=== PATIENT | female | born 1950 | race Asian ===

== ENCOUNTER 2018-12-03 09:37 | Outpatient (CLI) | payer MEDICARE, BC ==
--- NOTE | 2018-12-03 11:15 | MMO ---
Bilateral MAMMO Bilat Screen DDI+ASIF. CLINICAL HISTORY: Patient is 68 years old and is seen for screening. The patient has no family history of breast cancer. The patient has no personal history of cancer. The patient has a history of left needle biopsy in 2004 - benign. VIEWS: The views performed were: bilateral craniocaudal with tomosynthesis and bilateral mediolateral oblique with tomosynthesis. FILMS COMPARED: The present examination has been compared to a prior imaging study performed at [facility] on 07/04/2016. MAMMOGRAM FINDINGS: There are scattered fibroglandular densities. Finding 1: There are stable benign appearing calcifications seen in both breasts. Finding 2: There is a biopsy clip seen in the left breast. There are no suspicious masses, suspicious calcifications, or new areas of architectural distortion. IMPRESSION: THERE IS NO MAMMOGRAPHIC EVIDENCE OF MALIGNANCY. A ROUTINE FOLLOW-UP MAMMOGRAM IN 1 YEAR IS RECOMMENDED. THE RESULTS OF THIS EXAM WERE SENT TO THE PATIENT. ACR BI-RADS Category 2 - Benign finding MAMMOGRAPHY NOTE: 1. A negative mammogram report should not delay a biopsy if a dominant of clinically suspicious mass is present. 2. Approximately 10% to 15% of breast cancers are not detected by mammography. 3. Adenosis and dense breasts may obscure an underlying neoplasm.
== END 2018-12-03 09:38 | disposition home or self-care (01) ==
LOC: BICMAMMO 09:37
PROVIDERS: ATTEND Family Medicine
DX: Z12.31 Encounter for screening mammogram for malignant neoplasm of breast (principal)
CPT/HCPCS: 77063; 77067

== ENCOUNTER 2018-12-10 14:08 | Outpatient (CLI) | payer MEDICARE, BC ==
--- NOTE | 2018-12-10 14:40 | BD ---
DEXA BONE DENSITY EXAM: HISTORY: A 68-year-old postmenopausal female for screening. COMPARISON: 03/24/2008. FINDINGS: Lumbar Spine: BMD (g/cm2) L1 0.749 T-Score: -2.2 L2 0.777 T-Score: -2.3 L3 0.804 T-Score: -2.5 L4 0.929 T-Score: -1.2 L1-L4 0.829 T-Score: -2.0 Femoral Neck: 0.509 T-Score: -3.1 Total Femur: 0.720 T-Score: -1.8 Impression: Osteoporosis. This patient has approximately an 8 times increased risk for fracture when compared wi th young patients with normal bone mineral density. POS: ARMANDO
== END 2018-12-10 14:09 | disposition home or self-care (01) ==
LOC: BICMAMMO 14:08
PROVIDERS: ATTEND Family Medicine
DX: Z13.820 Encounter for screening for osteoporosis (principal); Z78.0 Asymptomatic menopausal state; M81.0 Age-related osteoporosis without current pathological fracture
CPT/HCPCS: 77080

== ENCOUNTER 2019-01-14 11:27 | Outpatient (CLI) | payer MEDICARE, BC ==
--- NOTE | 2019-01-14 12:12 | RAD ---
Exam: 2 views of the thoracic spine HISTORY: Thoracic spine pain COMPARISON: None FINDINGS: 2 views of the thoracic spine shows normal height and alignment of the vertebral bodies and intervertebral discs without fracture or subluxation. Mild degenerative changes are seen. IMPRESSION: Mild degenerative changes without acute osseous abnormality..
== END 2019-01-14 11:28 | disposition home or self-care (01) ==
LOC: BICRAD 11:27
PROVIDERS: ATTEND Internal Medicine Rheumatology
DX: M53.84 Other specified dorsopathies, thoracic region (principal); M47.814 Spondylosis without myelopathy or radiculopathy, thoracic region
CPT/HCPCS: 72070

== ENCOUNTER 2019-06-24 11:57 | Outpatient (CLI) | payer MEDICARE, BC ==
--- NOTE | 2019-06-24 13:59 | RAD ---
2 VIEW CHEST: Date: 06/24/19 HISTORY: Dyspnea. COMPARISON: Portable exam of 09/19/16. FINDINGS: The lungs appear clear and unchanged in position. Heart size within normal range and stable. Vascular markings within normal range. Osseous structures unremarkable. IMPRESSION: Unremarkable chest. No acute interval change. POS: [facility]
== END 2019-06-24 11:58 | disposition home or self-care (01) ==
LOC: RAD 11:57
PROVIDERS: ATTEND Internal Medicine Critical Care Medicine
DX: R06.00 Dyspnea, unspecified (principal)
CPT/HCPCS: 71046

== ENCOUNTER 2020-01-07 09:50 | Outpatient (CLI) | payer MEDICARE, BC ==
--- NOTE | 2020-01-07 10:53 | MMO ---
Bilateral MAMMO Bilat Screen DDI+ASIF. CLINICAL HISTORY: Patient is 69 years old and is seen for screening. The patient has no family history of breast cancer. The patient has no personal history of cancer. The patient has a history of left needle biopsy in 2004 - benign. VIEWS: The views performed were: bilateral craniocaudal with tomosynthesis and bilateral mediolateral oblique with tomosynthesis. FILMS COMPARED: The present examination has been compared to prior imaging studies performed at [facility] on 07/04/2016 and 12/03/2018. This study has been interpreted with the assistance of computer-aided detection. MAMMOGRAM FINDINGS: There are scattered fibroglandular densities. Benign calcifications are noted bilaterally. Left biopsy clip. There are no suspicious masses, suspicious calcifications, or new areas of architectural distortion. IMPRESSION: THERE IS NO MAMMOGRAPHIC EVIDENCE OF MALIGNANCY. A ROUTINE FOLLOW-UP MAMMOGRAM IN 1 YEAR IS RECOMMENDED. THE RESULTS OF THIS EXAM WERE SENT TO THE PATIENT. ACR BI-RADS Category 2 - Benign finding MAMMOGRAPHY NOTE: 1. A negative mammogram report should not delay a biopsy if a dominant of clinically suspicious mass is present. 2. Approximately 10% to 15% of breast cancers are not detected by mammography. 3. Adenosis and dense breasts may obscure an underlying neoplasm. Reported by: DORENE ALVAREZ MD Electonically Signed: [id number]
== END 2020-01-07 09:51 | disposition home or self-care (01) ==
LOC: BICMAMMO 09:50
PROVIDERS: ATTEND Family Medicine
DX: Z12.31 Encounter for screening mammogram for malignant neoplasm of breast (principal); Z91.89 Other specified personal risk factors, not elsewhere classified
CPT/HCPCS: 77063; 77067

== ENCOUNTER 2020-12-08 13:56 | Outpatient (CLI) | payer MEDICARE, BC | END 2020-12-08 13:57 | disposition home or self-care (01) | LOC: BICMAMMO 13:56 | PROVIDERS: ATTEND Internal Medicine Rheumatology | DX: M81.0 Age-related osteoporosis without current pathological fracture (principal) | CPT/HCPCS: 77080 ==

== ENCOUNTER 2021-01-24 11:43 | Outpatient (CLI) | payer MEDICARE, BC | END 2021-01-24 11:44 | disposition home or self-care (01) | LOC: BICMAMMO 11:43 | PROVIDERS: ATTEND Family Medicine | DX: Z12.31 Encounter for screening mammogram for malignant neoplasm of breast (principal); Z91.89 Other specified personal risk factors, not elsewhere classified | CPT/HCPCS: 77063; 77067 ==

== ENCOUNTER 2021-07-04 10:23 | Outpatient (CLI) | payer MEDICARE, BC | END 2021-07-04 10:24 | disposition home or self-care (01) | LOC: RAD 10:23 | PROVIDERS: ATTEND Internal Medicine Critical Care Medicine | DX: R06.00 Dyspnea, unspecified (principal) | CPT/HCPCS: 71046 ==

== ENCOUNTER 2022-01-25 13:13 | Outpatient (CLI) | payer MEDICARE, BC | END 2022-01-25 13:14 | disposition home or self-care (01) | LOC: BICMAMMO 13:13 | PROVIDERS: ATTEND Family Medicine | DX: Z12.31 Encounter for screening mammogram for malignant neoplasm of breast (principal); Z91.89 Other specified personal risk factors, not elsewhere classified | CPT/HCPCS: 77063; 77067 ==

== ENCOUNTER 2022-03-27 12:52 | Outpatient (CLI) | payer MEDICARE, BC | END 2022-03-27 12:53 | disposition home or self-care (01) | LOC: BICRAD 12:52 | PROVIDERS: ATTEND Internal Medicine Rheumatology | DX: M77.42 Metatarsalgia, left foot (principal) ==

== ENCOUNTER 2022-07-05 09:31 | Outpatient (CLI) | payer MEDICARE, BC | END 2022-07-05 09:32 | disposition home or self-care (01) | LOC: RAD 09:31 | PROVIDERS: ATTEND Internal Medicine Critical Care Medicine | DX: R06.00 Dyspnea, unspecified (principal) | CPT/HCPCS: 71046 ==

== ENCOUNTER 2022-10-30 13:37 | Outpatient (CLI) | payer MEDICARE, BC | END 2022-10-30 13:38 | disposition home or self-care (01) | LOC: BICRAD 13:37 | PROVIDERS: ATTEND Internal Medicine Rheumatology | DX: M54.2 Cervicalgia (principal); M47.812 Spondylosis without myelopathy or radiculopathy, cervical region | CPT/HCPCS: 72052 ==

== ENCOUNTER 2022-11-27 12:26 | Outpatient (CLI) | payer MEDICARE, BC | END 2022-11-27 12:27 | disposition home or self-care (01) | LOC: BICRAD 12:26 | PROVIDERS: ATTEND Family Medicine | DX: M25.531 Pain in right wrist (principal) ==

== ENCOUNTER 2023-01-04 13:09 | Outpatient (CLI) | payer MEDICARE, BC | END 2023-01-04 13:10 | disposition home or self-care (01) | LOC: TBSIIMAG 13:09 | PROVIDERS: ATTEND Specialist | DX: M54.12 Radiculopathy, cervical region (principal); M47.812 Spondylosis without myelopathy or radiculopathy, cervical region; E07.9 Disorder of thyroid, unspecified | CPT/HCPCS: 72141 ==

== ENCOUNTER 2023-07-16 09:44 | Outpatient (CLI) | payer MEDICARE, BC | END 2023-07-16 09:45 | disposition home or self-care (01) | LOC: RAD 09:44 | PROVIDERS: ATTEND Internal Medicine Critical Care Medicine | DX: R06.00 Dyspnea, unspecified (principal); J98.4 Other disorders of lung; M47.814 Spondylosis without myelopathy or radiculopathy, thoracic region | CPT/HCPCS: 71046 ==

== ENCOUNTER 2024-02-06 09:50 | Outpatient (CLI) | payer MEDICARE, BC | END 2024-02-06 09:51 | disposition home or self-care (01) | LOC: BICRAD 09:50 | PROVIDERS: ATTEND Family Medicine | DX: R09.89 Other specified symptoms and signs involving the circulatory and respiratory systems (principal); R91.8 Other nonspecific abnormal finding of lung field; M47.819 Spondylosis without myelopathy or radiculopathy, site unspecified; I70.90 Unspecified atherosclerosis | CPT/HCPCS: 71046 ==

== ENCOUNTER 2024-03-26 12:43 | Outpatient (CLI) | payer MEDICARE, BC | END 2024-03-26 12:44 | disposition home or self-care (01) | LOC: BICMAMMO 12:43 | PROVIDERS: ATTEND Family Medicine | DX: Z12.31 Encounter for screening mammogram for malignant neoplasm of breast (principal); M81.0 Age-related osteoporosis without current pathological fracture; M85.88 Other specified disorders of bone density and structure, other site; Z91.89 Other specified personal risk factors, not elsewhere classified | CPT/HCPCS: 77063; 77067; 77080 ==

== ENCOUNTER 2025-03-31 09:13 | Outpatient (CLI) | payer MEDICARE, BC | END 2025-03-31 09:14 | disposition home or self-care (01) | LOC: BICMAMMO 09:13 | PROVIDERS: ATTEND Family Medicine | DX: Z12.31 Encounter for screening mammogram for malignant neoplasm of breast (principal); Z91.89 Other specified personal risk factors, not elsewhere classified | CPT/HCPCS: 77063; 77067 ==